=== PATIENT | female | born 1945 | race Caucasian/White ===

== ENCOUNTER 2018-07-09 08:15 | Inpatient (IN) | payer OTHER ==
[~2018-07-09] VITALS: Ht 160 cm; Wt 90.7 kg
[2018-07-15] MEDS ORDERED: SYNTHROID137 MCG PO (12:31)
[2018-07-15] MEDS ORDERED: ASPIR 8181 MG PO (12:32)
[2018-07-15] MEDS ORDERED: LIPIT PO (12:32)
[2018-07-15] MEDS ORDERED: HYDROCHLOROTHIAZIDE PO (12:33)
[2018-07-15] MEDS ORDERED: BUPROPION XL150 MG PO (12:33)
[2018-07-15] MEDS ORDERED: ATENOLOL25 MG PO (12:34)
[2018-07-15] MEDS ORDERED: RISPERIDONE0.5 MG PO (12:34)
== END 2018-07-18 15:28 | DRG 470 ==
LOC: SURH 07-16 06:53 → O/R 07-16 06:53 → SURH 07-16 08:15
PROVIDERS: Orthopaedic Surgery
PROC: 0SRC0J9 Replacement of Right Knee Joint with Synthetic Substitute, Cemented, Open Approach (ICD-10-PCS; principal; 2018-07-16 14:30)
DX: M17.11 Unilateral primary osteoarthritis, right knee (principal); D62 Acute posthemorrhagic anemia; M85.461 Solitary bone cyst, right tibia and fibula; I87.2 Venous insufficiency (chronic) (peripheral)

== ENCOUNTER 2019-02-25 11:00 | Inpatient (IN) | payer OTHER ==
[~2019-02-25] VITALS: Ht 162.6 cm; Wt 90.7 kg
[~2019-02-25 11:00] MED LIST: ASPIR 8181 MG PO; ATENOLOL25 MG PO; BUPROPION XL150 MG PO; HYDROCHLOROTHIAZIDE PO; LIPIT PO; RISPERIDONE0.5 MG PO; SYNTHROID137 MCG PO
[2019-03-04] MEDS ORDERED: HYDROCHLOROTHIA25 MG PO (08:04)
[2019-03-04] MEDS ORDERED: ATORVASTATIN CA10 MG PO (08:06)
== END 2019-03-06 16:37 | DRG 470 ==
LOC: SURH 11:00 → O/R 03-04 05:40 → SURG 03-04 05:40 → SURH 03-04 07:00 → SURG 03-04 10:13 → SURH 03-04 11:00 → SURG 03-06 16:37
PROVIDERS: ADMIT Orthopaedic Surgery
PROC: 0SRD0J9 Replacement of Left Knee Joint with Synthetic Substitute, Cemented, Open Approach (ICD-10-PCS; principal; 2019-03-04 07:00)
DX: M17.12 Unilateral primary osteoarthritis, left knee (principal); D62 Acute posthemorrhagic anemia; E03.8 Other specified hypothyroidism; I10 Essential (primary) hypertension; I73.89 Other specified peripheral vascular diseases